=== PATIENT | male | born 1950 ===

== ENCOUNTER 2018-04-12 16:41 | Emergency (ER) | payer MEDICARE ==
[2018-04-12 17:24] VITALS: BP 147/83; PULSE 85; RESP 19; TEMP 98.3; O2SAT 95
[2018-04-12] MEDS ORDERED: TraMADol/Apap 37.5/325 mg Tab PO STA (17:36)
--- NOTE | 2018-04-12 17:36 | ED PDOC ---
Arrival/HPI - General Chief Complaint: Lower Extremity Problem/Injury Time Seen by Provider: 04/12/18 17:31 Historian: Patient - History of Present Illness Narrative History of Present Illness (Text): 04/12/18 17:32 68 y/o male, no significant pmh, nkda, c/o lt. foot sole pain x 2 days s/p twisted while pulled by the dog about 2 days ago. Aching pain, aggravated by walking, able to bear weight and no limping, no numbness or tingling, no night sweat, no rash, no other medical or psychological complaints. Past Medical History - Provider Review Nursing Documentation Reviewed: Yes - Infectious Disease Hx of Infectious Diseases: None - Psychiatric Hx Anxiety: Yes Hx Substance Use: No - Anesthesia Hx Anesthesia: No Hx Anesthesia Reactions: No Hx Malignant Hyperthermia: No Family/Social History - Physician Review Nursing Documentation Reviewed: Yes Family/Social History: Unknown Family HX Smoking Status: Never Smoked Hx Alcohol Use: No Hx Substance Use: No Allergies/Home Meds Allergies/Adverse Reactions: Allergies No Known Allergies Allergy (Verified 04/12/18 17:23) Home Medications: Home Meds Medication Instructions Recorded Confirmed Clonazepam [Klonopin] 1 tab PO DAILY PRN 04/12/18 04/12/18 Review of Systems - Review of Systems Constitutional: absent: Fatigue, Fevers Eyes: absent: Vision Changes ENT: absent: Hearing Changes Respiratory: absent: SOB, Cough Cardiovascular: absent: Chest Pain Gastrointestinal: absent: Abdominal Pain, Nausea, Vomiting Musculoskeletal: Myalgias. absent: Arthralgias, Back Pain, Neck Pain, Joint Swelling Skin: absent: Rash, Pruritis Neurological: absent: Headache, Dizziness Psychiatric: absent: Anxiety, Depression Physical Exam Vital Signs Reviewed: Yes Vital Signs Temp Pulse Resp BP Pulse Ox 04/12/18 17:18 98.3 F 85 19 147/83 95 Temperature: Afebrile Blood Pressure: Normal Pulse: Regular Respiratory Rate: Normal Appearance: Positive for: Well-Appearing, Non-Toxic, Comfortable Pain Distress: Moderate Mental Status: Positive for: Alert and Oriented X 3 - Systems Exam Head: Present: Atraumatic, Normocephalic Pupils: Present: PERRL Extroacular Muscles: Present: EOMI Conjunctiva: Present: Normal Mouth: Present: Moist Mucous Membranes Neck: Present: Normal Range of Motion Respiratory/Chest: Present: Clear to Auscultation, Good Air Exchange. No: Respiratory Distress, Accessory Muscle Use Cardiovascular: Present: Regular Rate and Rhythm, Normal S1, S2. No: Murmurs Abdomen: No: Tenderness, Distention, Peritoneal Signs Back: Present: Normal Inspection Upper Extremity: Present: Normal Inspection. No: Cyanosis, Edema Lower Extremity: Present: Normal Inspection, Other (Lt. foot: +ttp on the sole of the plantar region with no swelling or ecchymosis, negative alejandro and fletcher signs, FROM without limitation, sensation intact, motor 5/5, +DPPT pulses, capillary refill< 2 seconds, neurovascular intact. ). No: Edema Neurological: Present: GCS=15, CN II-XII Intact, Speech Normal Skin: Present: Warm, Dry, Normal Color. No: Rashes Psychiatric: Present: Alert, Oriented x 3, Normal Insight, Normal Concentration Medical Decision Making ED Course and Treatment: 04/12/18 17:39 -tramadol -xray -Observe and reassess 04/12/18 19:18 -Lt. foot xray show no fracture or dislocation -Negative alejandro and fletcher signs on the LLE -Pt. stated that he feels better. -Da wrap applied by me with neurovascular intact, cane -Discharge home with tylenol, da wrap, cane, follow up with your own pmd and domestic technician within 2 days, return to the ER for any new or worsening signs or symptoms. - RAD Interpretation Radiology Orders: 04/12/18 17:36 FOOT LEFT 3 VIEWS ROUTINE [RAD] Stat TECHNIQUE: Frontal, lateral and oblique views of the left foot. COMPARISON: No relevant prior studies available. FINDINGS: Bones/joints: No fractures. Hallux valgus. Hammertoes second through fifth digits. Soft tissues: No radiopaque foreign body. IMPRESSION: No fractures. Thank you for allowing us to participate in the care of your patient. 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 No Sleep Is patient sleeping during reassessment? 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 Disposition/Present on Arrival - Present on Arrival Any Indicators Present on Arrival: No History of DVT/PE: No History of Uncontrolled Diabetes: No Urinary Catheter: No History of Decub. Ulcer: No History Surgical Site Infection Following: None - Disposition Have Diagnosis and Disposition been Completed?: Yes Diagnosis: Foot injury, Foot pain Disposition: HOME/ ROUTINE Disposition Time: 18:49 Patient Plan: Discharge Patient Problems: Current Active Problems Problem Status Onset Foot injury Acute Foot pain Acute Condition: IMPROVED Additional Instructions: -Discharge home with tylenol, da wrap, cane, follow up with your own pmd and domestic technician within 2 days, return to the ER for any new or worsening signs or symptoms. Prescriptions: Acetaminophen [Acetaminophen Extra Strength] 500 mg PO QID PRN #30 tablet PRN Reason: Other Referrals: Parrish Skelton MD [[facility]] - Follow up with primary Forms: [employer] [facility] ([place]ish), WORK NOTE
--- NOTE | 2018-04-13 08:03 | RAD ---
EXAM: XR Left Foot Complete, 3 or More Views CLINICAL HISTORY: 68 years old, male; Pain; Foot; Left; Additional info: Lt. Foot sole pain S/P twisted TECHNIQUE: Frontal, lateral and oblique views of the left foot. COMPARISON: No relevant prior studies available. FINDINGS: Bones/joints: No fractures. Hallux valgus. Hammertoes second through fifth digits. Soft tissues: No radiopaque foreign body. IMPRESSION: No fractures.
== END 2018-04-12 19:41 | disposition home or self-care (01) ==
LOC: ED 16:41
DX: M79.672 Pain in left foot (principal); S99.922A Unspecified injury of left foot, initial encounter; X50.1XXA Overexertion from prolonged static or awkward postures, initial encounter; Y92.9 Unspecified place or not applicable